=== PATIENT | male | born 1960 | race Caucasian/White ===

== ENCOUNTER → 2018-06-15 08:27 | Outpatient (CLI) | payer OTHER, SELFPAY ==
[2018-06-15 09:01] LABS: HEMOLYSIS < 15 (0-50)
[2018-06-15 09:02] LABS: Add Manual Diff / Slide Review NO; Basophils Absolute Auto 100 /uL (0-100); Basophils Percent Auto 0.9 % (0-2); Eosinophils Absolute Auto 0 /uL (0-450); Eosinophils Percent Auto 0.7 % (2-4); Hematocrit 46.3 % (41-53); Hemoglobin 15.7 g/dL (13.5-17.5); Lymphocytes Absolute Auto 1700 /uL (1100-4500); Lymphocytes Percent Auto 25.1 % (25-40); Mean Corpuscular HGB Conc 33.9 % (30-36); Mean Corpuscular Hemoglobin 31.4 PG (26-34); Mean Corpuscular Volume 92.4 fL (80-100); Monocytes Absolute Auto 700 /uL (0-900); Monocytes Percent Auto 9.8 % (3-14); Neutrophils Absolute Auto 4400 /uL (1500-7000); Neutrophils Percent Auto 63.5 % (50-75); Platelet Count 329 X10^3/uL (150-400); Red Blood Cell Count 5.01 X10^6/uL (4.5-5.9); Red Cell Distribution Width 13.4 % (11.6-14.8); White Blood Cell Count 6.9 X10^3/uL (4.5-11.0)
[2018-06-15 09:06] LABS: Alanine Aminotransferase 50 IU/L (21-72); Albumin 4.6 g/dL (3.5-5.0); Albumin Globulin Ratio 1.4 (1.0-2.8); Alkaline Phosphatase 118 U/L (38-126); Aspartate Aminotransferase 41 IU/L (17-59); BUN Creatinine Ratio 15.7 (6-22); Bilirubin Total 0.7 mg/dL (0.2-1.3); Blood Urea Nitrogen 11 mg/dL (9-20); Calcium 9.3 mg/dL (8.4-10.2); Carbon Dioxide 25 mmol/L (22-32); Chloride 102 mmol/L (98-107); Cholesterol 225 mg/dL (140-199); Estimated Glomerular Filt Rate > 60.0 mL/min (>60); Globulin 3.3 g/dL (1.7-4.1); Glucose 97 mg/dL (70-100); HDL Cholesterol 43 mg/dL (40-60); LDL Cholesterol Calculated 144 mg/dL (<100); Potassium 4.2 mmol/L (3.4-5.1); Sodium 139 mmol/L (137-145); Total Protein 7.9 g/dL (6.3-8.2); Triglycerides 189 mg/dL (35-150)
[2018-06-15 09:38] LABS: Prostate Specific Antigen 2.24 ng/mL (0.10-4.00)
[2018-06-15 09:56] LABS: Thyroid Stimulating Hormone 5.18 uIU/mL (0.47-4.68)
== END ==
PROVIDERS: PCP Family Medicine; Visit Provider Family Medicine
DX: R89.9 Unspecified abnormal finding in specimens from other organs, systems and tissues (principal); Z12.5 Encounter for screening for malignant neoplasm of prostate; Z13.0 Encounter for screening for diseases of the blood and blood-forming organs and certain disorders involving the immune mechanism; Z13.220 Encounter for screening for lipoid disorders; Z13.29 Encounter for screening for other suspected endocrine disorder
CPT/HCPCS: 36415; 80053; 80061; 84153; 84443; 85025

== ENCOUNTER 2019-01-10 08:41 | Day surgery (SDC) | payer OTHER, SELFPAY ==
[2019-01-10] VITALS (9 sets, daily range): BP systolic 96–131; BP diastolic 67–85; PULSE 72–108; RESP 12–17; TEMP 36.2–37.1; O2SAT 93–99; BMI 28.0
--- NOTE | 2019-01-10 | PATH_ITS ---
[facility] Accession Number: [id number] . 01 Material submitted: . PART A: colon - COLON POLYP BIOPSY AT 25 CM X2 PART B: colon - COLON POLYP BIOPST AT 110 CM . 02 Diagnosis: A. Colon, Polyp at 25 cm x2, Biopsies: Tubular adenoma in one of four fragments. Hyperplastic polyp in one fragment. . B. Colon, Polyp at 110 cm, Biopsy: Colonic mucosa with no diagnostic abnormality, consistent with polypoid redundancy. Additional levels were examined. Negative for dysplasia and malignancy. V 01/14/2019 1321 Local . 02 Electronically signed: . Leann Hanna MD, Pathologist NPI- [id number] . 01 Gross description: . Part A: COLON POLYP BIOPSY AT 25 CM X2: Received in formalin are 3 fragment(s) of mo, soft tissue measuring 0.1 x 0.1 x 0.1 cm to 0.3 x 0.3 x 0.2 cm which is entirely submitted and submitted entirely in 1 cassette(s) Part B: COLON POLYP BIOPST AT 110 CM: Received in formalin are 2 fragment(s) of mo, soft tissue measuring 0.1 x 0.1 x 0.1 cm to 0.2 x 0.1 x 0.1 cm which is entirely submitted and submitted entirely in 1 cassette(s) [place] [place]10/2019[place] Local . 02 Pathologist provided ICD-10: D12.6 . 02 CPT . 992458, [id number] Performed at: 01 [facility] [address], [place], [place] [id number] MD Erik Tomas MD Phone: [phone] Performed at: 02 [facility] [place] [address] [place] [id number] MD Leann Hanna MD Phone: [phone]
--- NOTE | 2019-01-10 09:26 | PM.HP.1 ---
History of Present Illness History of Present Illness Date Patient Seen: 01/10/19 Time Patient Seen: 09:26 Chief complaint: [id number] Narrative: The patient is a gentleman who has had large polyps removed about 2 years ago. He is brought back for an fairly early examination. The patient is father of colon cancer in his late 60s. Patient History Medical History (Updated 01/10/19 @ 09:27 by Anoop Howard MD) GERD (gastroesophageal reflux disease) (Chronic) Seasonal allergic rhinitis (Chronic) Family History Father Cancer Mother Cancer Social History household members: spouse Smoking Status: Never smoker Family & Social History Family History Father Cancer Mother Cancer Social History: household members spouse Tobacco & Substance use: Smoking Status Never smoker Meds Home Medications and Allergies Home Medications Medication Instructions Recorded Confirmed Type cyanocobalamin (vitamin B-12) #0 01/05/17 06/19/18 History [Vitamin B-12] acyclovir 800 mg tablet 800 mg PO 5XD #35 tab 05/10/18 01/10/19 Rx cholecalciferol (vitamin D3) 1,000 2,000 unit PO DAILY 11/28/18 01/10/19 History unit capsule Allergies Allergy/AdvReac Type Severity Reaction Status Date / Time pseudoephedrine Allergy Mild JITTERY/ Verified 01/10/19 09:26 [PSEUDOEPHEDRINE] FROM SUDAFED Corticosteroids AdvReac Mild Verified 01/10/19 09:26 (Glucocorticoids) [CORTICOSTEROIDS (GLUCOCORTICOIDS)] Exam Vital Signs (past 8 hours): - 01/10/19 09:17 Temperature 98.7 F Pulse Rate 108 H Respiratory Rate 16 Blood Pressure 131/85 Pulse Oximetry 97 Oxygen Delivery Method Room Air Narrative Exam Narrative: Pleasant cooperative patient no apparent distress. Lungs are clear to auscultation. No rales or rhonchi. Heart regular rate and rhythm no murmur gallop. Abdomen is soft nontender without mass. No obvious hernias. Patient is alert and oriented x3. Assessment & Plan Assessment and plan (1) History of colon polyps: Current visit: Yes Status: Acute Assessment & Plan narrative: The patient for a screening colonoscopy. I have discussed the procedure with them. Risks of bleeding, perforation which would necessitate major operation, failure to find remove all lesions, the potential tattoo were all discussed. All questions were answered. They wished to proceed.
--- NOTE | 2019-01-10 09:29 | PM.PREOP ---
Pre-operative Note Interval Note History & Physical reviewed/Exam performed by Physician: Yes Changes to H&P: No ASA Class (for procedural sedation): I
[2019-01-10] MEDS: SODIUM CHLORIDE 0.9% 1,000 ML 150 ML IV (09:30)
[2019-01-10] MEDS: MIDAZOLAM 5 MG/5 ML VIAL IV (10:09)
[2019-01-10] MEDS: fentaNYL 250 MCG/5 ML INJ IV (10:11)
--- NOTE | 2019-01-10 10:20 | PM.OP.ENDO ---
Operative Date/Time/Diagnoses Date of procedure: 01/10/19 Time of procedure: 10:20 Pre-op diagnosis: History of large polyps. Last colonoscopy 2 years ago. Family history colon cancer in his father. Post-op diagnosis: same (Multiple small colon polyps. Diverticulosis.) Procedure & Clinicians Study performed: Colonoscopy with cold biopsy Same procedure as scheduled: Yes Indications: Screening. Surgeon: Anoop Howard Procedure Notes SCOAP/Timeout: Performed Procedure in detail: The patient was placed in the left lateral decubitus position and underwent IV sedation directed by the surgeon consisting of fentanyl and Versed. Digital exam was unremarkable. The scope was inserted and advanced through the rectum into the sigmoid, descending, transverse, and ascending colon. I encountered 3 small flat lesions at about 25 cm from the anal verge on my way in and I removed them with biopsy forceps.. The cecum was reached identified by the ileocecal valve and the appendiceal opening. The scope was gradually brought out. Polyps were found at 100 cm from the anal verge and again at 25 cm from the anal verge. These were all small polyps in the removed.. The scope ultimately was retroflexed in the rectum. The appearance was normal. The scope was removed and the patient tolerated the procedure well. Prep was very good Scope withdrawal time: 9min (11.5 total) Sedation minutes: 26 Findings: diverticulosis and polyp (Multiple small) Specimen(s): other (Polyps) Complications: none Post-procedure Recommendations: Colonscopy in 3 years Follow up: as needed Disposition: PACU
== END 2019-01-10 11:27 | disposition home or self-care (01) ==
PROVIDERS: PCP Family Medicine; Visit Provider Specialist
PROC: 0DJD8ZZ Inspection of Lower Intestinal Tract, Via Natural or Artificial Opening Endoscopic (ICD-10-PCS; CPT 45378; principal; 2019-01-10 09:45)
DX: Z86.010 Personal history of colon polyps (principal); Z80.0 Family history of malignant neoplasm of digestive organs; K57.30 Diverticulosis of large intestine without perforation or abscess without bleeding; D12.6 Benign neoplasm of colon, unspecified
CPT/HCPCS: 45380; 99152; J2250; J3010

== ENCOUNTER → 2022-11-30 07:46 | Outpatient (CLI) | payer OTHER, SELFPAY ==
[2022-11-30 08:40] LABS: Add Manual Diff / Slide Review NO; Basophils Absolute Auto 100 /uL (0-100); Eosinophils Absolute Auto 200 /uL (0-450); Eosinophils Percent Auto 2.7 % (2-4); Hematocrit 44.4 % (41-53); Hemoglobin 15.4 g/dL (13.5-17.5); Lymphocytes Absolute Auto 1600 /uL (1100-4500); Lymphocytes Percent Auto 25.2 % (25-40); Mean Corpuscular HGB Conc 34.7 % (30-36); Mean Corpuscular Volume 92.2 fL (80-100); Monocytes Absolute Auto 600 /uL (0-900); Monocytes Percent Auto 10.5 % (3-14); Neutrophils Absolute Auto 3800 /uL (1500-7000); Neutrophils Percent Auto 60.6 % (50-75); Platelet Count 302 X10^3/uL (150-400); Red Blood Cell Count 4.81 X10^6/uL (4.5-5.9); Red Cell Distribution Width 13.6 % (11.6-14.8); White Blood Cell Count 6.2 X10^3/uL (4.5-11.0)
[2022-11-30 08:48] LABS: Alanine Aminotransferase 24 IU/L (<50); Albumin 4.1 g/dL (3.5-5.0); Albumin Globulin Ratio 1.4 (1.0-2.8); Alkaline Phosphatase 115 U/L (38-126); Aspartate Aminotransferase 27 IU/L (17-59); BUN Creatinine Ratio 11.3 (6-22); Bilirubin Total 0.8 mg/dL (0.2-1.3); Blood Urea Nitrogen 8 mg/dL (9-20); Calcium 9.2 mg/dL (8.4-10.2); Carbon Dioxide 23 mmol/L (22-32); Chloride 103 mmol/L (98-107); Cholesterol 211 mg/dL (140-199); Estimated Glomerular Filt Rate > 60 mL/min (>60); Glucose 96 mg/dL (80-110); HDL Cholesterol 66 mg/dL (40-60); HEMOLYSIS < 15 (0-50); LDL Cholesterol Calculated 118 mg/dL (<100); Potassium 4.3 mmol/L (3.4-5.1); Sodium 135 mmol/L (137-145); Total Protein 7.1 g/dL (6.3-8.2); Triglycerides 136 mg/dL (35-150)
[2022-11-30 09:08] LABS: TSH w/ Reflex to FT4 3.17 uIU/mL (0.47-4.68)
[2022-11-30 09:10] LABS: Prostate Specific Antigen Scrn 2.55 ng/mL (0.1-4.0)
== END ==
PROVIDERS: PCP Family Medicine; Referring Provider Family Medicine; Visit Provider Family Medicine
DX: E78.2 Mixed hyperlipidemia (principal); I10 Essential (primary) hypertension; R79.89 Other specified abnormal findings of blood chemistry; Z12.5 Encounter for screening for malignant neoplasm of prostate
CPT/HCPCS: 36415; 80053; 80061; 84443; 85025; G0103

== ENCOUNTER 2023-04-21 07:26 | Day surgery (SDC) | payer OTHER, SELFPAY ==
[2023-04-21 07:45] VITALS: BP 153/93; PULSE 96; RESP 16; TEMP 36.2; O2SAT 98; BMI 28.8
[2023-04-21] MEDS: LACTATED RINGERS 1,000 ML 42 ML IV (07:45)
--- NOTE | 2023-04-21 08:42 | PM.HP.1 ---
History of Present Illness History of Present Illness Date Patient Seen: 04/21/23 Time Patient Seen: 08:42 Chief complaint: Colonoscopy Narrative: h/o colon polyps, dad diagnosed age 60 with colon cancer. Last scope 2019. [facility] Medical History Actinic keratoses Diverticulitis Calf pain History of colon polyps GERD (gastroesophageal reflux disease) Seasonal allergic rhinitis Family History Father Cancer Mother Cancer Social History household members: spouse Smoking Status: Never smoker alcohol intake: current Meds Home Medications and Allergies Home Medications Medication Instructions Recorded Confirmed Type No Known Home Medications 04/21/23 04/21/23 History Allergies Allergy/AdvReac Type Severity Reaction Status Date / Time pseudoephedrine Allergy Mild JITTERY/ Verified 04/21/23 07:31 [PSEUDOEPHEDRINE] FROM SUDAFED Corticosteroids AdvReac Mild Verified 04/21/23 07:31 (Glucocorticoids) [CORTICOSTEROIDS (GLUCOCORTICOIDS)] Review of Systems Review of Systems ROS: Yes All systems reviewed with the patient and are negative except as otherwise documented Exam Vital Signs (past 8 hours): - 04/21/23 07:45 Temperature 97.2 F L Pulse Rate 96 H Respiratory Rate 16 Blood Pressure 153/93 H Pulse Oximetry 98 Oxygen Delivery Method Room Air Oxygen Delivery Method Room Air Const General: cooperative, healthy appearing and comfortable [facility] Head: normal to inspection, normocephalic and atraumatic Eyes General: appearance normal, both eyes and all related structures Neck Neck: full ROM and trachea midline Resp Effort & Inspection: normal respiratory effort and able to speak in complete sentences Cardio Rate: regular rate Rhythm: regular rhythm GI Inspection: normal to inspection and non-distended Skin General: elasticity normal and turgor normal Neuro General: patient alert, patient awake and patient oriented x3 Psych Mental Status: mental status grossly normal Attitude: cooperative Judgment: judgment good Assessment & Plan Assessment & Plan narrative: History of colon polyps, family history colon cancer. Plan: Colonoscopy with anesthesia Time Spent With Patient Time with patient: less than 30 minutes
--- NOTE | 2023-04-21 09:10 | PM.OP.COLON ---
Operative Date/Time/Diagnoses Date of procedure: 04/21/23 Time of procedure: 09:10 Pre-op diagnosis: History of colon polyps Post-op diagnosis: same Procedure & Clinicians Study performed: Colonoscopy with anesthesia Same procedure as scheduled: Yes Indications: History of colon polyps Surgeon: Starla Abbott Procedure Notes Procedure in detail: Preop diagnosis: History of colon polyps Postop diagnosis: Same Operative procedure: Colonoscopy with anesthesia Surgeon: Addis Abbott MD Findings: Small scant diverticuli of the descending colon. No polyps. Procedure: Patient placed in lateral position. Rectal exam performed showing normal tone no masses. Colonoscope inserted into the rectum and advanced to ileocecal valve with minimal difficulty. Insufflation extraction scope and the above findings. Retroflex was included in the rectum. Impression: Scant small diverticuli of the descending colon. No polyps. Plan repeat colonoscopy in 5 years unless otherwise indicated by change in clinical condition Findings: divertiulosis Specimen(s): none sent Complications: none Post-procedure Recommendations: Colonoscopy in 5 years Follow up: as needed Disposition: PACU
[2023-04-21 09:13] VITALS: BP 103/70; PULSE 76; RESP 17; TEMP 36.5; O2SAT 95
[2023-04-21 09:18] VITALS: BP 108/70; PULSE 71; RESP 15; O2SAT 95
[2023-04-21 09:22] VITALS: BP 110/72; PULSE 71; RESP 14; O2SAT 96
[2023-04-21 09:24] VITALS: BP 122/88; PULSE 64; RESP 16; TEMP 36.6; O2SAT 96
== END 2023-04-21 09:29 | disposition home or self-care (01) ==
PROVIDERS: Surgery; PCP Family Medicine; Referring Provider Surgery; Visit Provider Surgery
PROC: 0DJD8ZZ Inspection of Lower Intestinal Tract, Via Natural or Artificial Opening Endoscopic (ICD-10-PCS; CPT 45378; principal; 2023-04-21 08:30)
DX: Z12.11 Encounter for screening for malignant neoplasm of colon (principal); Z86.010 Personal history of colon polyps; K57.30 Diverticulosis of large intestine without perforation or abscess without bleeding
CPT/HCPCS: 45378; J2704